=== PATIENT | female | born 1995 ===

== ENCOUNTER 2017-12-07 23:00 | Emergency (ER) | payer SELFPAY ==
--- NOTE | 2017-12-08 01:21 | ED ---
Head Injury - HPI Summary HPI Summary: This patient is a 22 year old F presenting to [facility] with a chief complaint of right cheek laceration since 2119. She endorses that she was hit in face by field hockey ball during practice. She denies LOC. - History Of Current Complaint Chief Complaint: EDLacSutureRecheck Stated Complaint: FACIAL INJURY Time Seen by Provider: 12/08/17 00:49 Hx Obtained From: Patient Mechanism Of Injury: Blunt Trauma - field hockey ball Onset/Duration: Started Hours Ago, Traumatic, Still Present Onset of Pain: Minutes Severity Currently: Mild Severity Initially: Mild Pain Intensity: 0 Pain Scale Used: 0-10 Numeric Location of Head Injury: Other: - right cheek Associated Signs And Symptoms: Redness, Bruising, Other: - laceration - Allergies/Home Medications Allergies/Adverse Reactions: Allergies Allergy/AdvReac Type Severity Reaction Status Date / Time No Known Allergies Allergy Verified 12/07/17 23:06 Home Medications: Home Medications NK [No Home Medications Reported] 12/08/17 [History Confirmed 12/08/17] PMH/Surg Hx/FS Hx/Imm Hx Endocrine/Hematology History: Denies: Hx Sickle Cell Disease Cardiovascular History: Denies: Hx Pacemaker/ICD Respiratory History: Denies: Hx Lung Cancer GI History: Denies: Hx Ileostomy History: Denies: Hx Dialysis Sensory History: Denies: Hx Legally Blind, Hx Deafness Opthamlomology History: Denies: Hx Legally Blind EENT History: Denies: Hx Deafness Neurological History: Denies: Hx Dementia Psychiatric History: Denies: Hx Autism, Hx Schizophrenia - Immunization History Date of Tetanus Vaccine: 2017 Infectious Disease History: No Infectious Disease History: Denies: Traveled Outside the [place] in Last 30 Days - Family History Known Family History: Negative: Diabetes - Social History Occupation: Student Lives: Dormitory/Roommates Alcohol Use: Occasionally Substance Use Type: Reports: None Smoking Status (MU): Never Smoked Tobacco Review of Systems Negative: Fever Positive: no symptoms reported Positive: Bruising, Other - right cheek laceration All Other Systems Reviewed And Are Negative: Yes Physical Exam - Summary Physical Exam Summary: Appearance: Well-appearing, Well-nourished, lying in bed comfortable Skin: Warm, dry, no obvious rash, obvious contusion with 2 cm linear laceration to right maxillary area. Eyes: sclera anicteric, no conjunctival pallor, EOMI, no hyphema, no damage to the globe ENT: mucous membranes moist Neck: deferred Respiratory: No signs of respiratory distress Cardiovascular: Appears well perfused, pulses are nml Abdomen: deferred Musculoskeletal: Moving all 4 extremities without obvious discomfort Neurological: Awake and alert, mentation is normal, speech is fluent and appropriate Psychiatric: affect is normal, does not appear anxious or depressed Triage Information Reviewed: Yes Vital Signs On Initial Exam: Initial Vitals Temp Pulse Resp BP Pulse Ox 98.3 F 81 16 131/84 98 12/07/17 23:04 12/07/17 23:04 12/07/17 23:04 12/07/17 23:04 12/07/17 23:04 Vital Signs Reviewed: Yes Procedures - Laceration/Wound Repair 1 Location: face Description: Linear Length, Depth and Shape: 2cm linear, clean edges Betadine Prep?: No Irrigated w/ Saline (ccs): 0 Laceration/Wound Explored: clean Closure: Skin Adhesive - dermabond Number of Sutures: 0 Layer Closure?: Yes Sterile Dressing Applied?: No Diagnostics - Vital Signs Vital Signs Temp Pulse Resp BP Pulse Ox 12/08/17 00:51 98.5 F 73 16 94/72 100 12/07/17 23:04 98.3 F 81 16 131/84 98 - Laboratory Lab Statement: Any lab studies that have been ordered have been reviewed, and results considered in the medical decision making process. Head Injury Course/Dx Course Of Treatment: A 22-year-old F presents to the ED with a CC of right cheek laceration since 2129. (+) eccymosis, 2 cm laceration. (-) LOC. field hockey practice, hit in face with a ball on the fly. Dermabond for laceration closure. - Diagnoses Provider Diagnoses: Facial laceration Discharge - Sign-Out/Discharge Documenting (check all that apply): Patient Departure - discharge - Discharge Plan Condition: Good Disposition: HOME Patient Education Materials: Skin Adhesive Care (ED), Facial Laceration (ED) Referrals: [facility] [Outside] Additional Instructions: I expect you to be more black and blue in the morning. Ice and rest will help with the swelling. The skin glue will flake off gradually over the next week. Facial lacerations tend to heal quite well, especially in young people. To minimize final scar, it is important to minimize sun exposure to the face while healing over the next few months, so sunblock can be quite helpful. - Billing Disposition and Condition Condition: GOOD Disposition: Home - Attestation Statements Document Initiated by Danie: Yes Documenting Scribe: Antelmo Patel Provider For Whom Danie is Documenting (Include Credential): Dr. Matt Kulkarni MD Scribe Attestation: I, Antelmo Patel, scribed for Dr. Matt Kulkarni MD on 12/08/17 at 0619. Scribe Documentation Reviewed: Yes Provider Attestation: The documentation as recorded by the Antelmo heck accurately reflects the service I personally performed and the decisions made by me, Dr. Matt Kulkarni MD
[2017-12-08 01:46] VITALS: BP 107/74
== END 2017-12-08 01:45 | disposition home or self-care (01) ==
LOC: ED 23:00
DX: S01.411A Laceration without foreign body of right cheek and temporomandibular area, initial encounter (principal); W21.09XA Struck by other hit or thrown ball, initial encounter; Y93.65 Activity, lacrosse and field hockey; Y92.9 Unspecified place or not applicable
CPT/HCPCS: 99282